=== PATIENT | female | born 1995 | race Caucasian/White ===

== ENCOUNTER 2022-05-02 07:57 | Inpatient (IN) ==
[2022-05-02] MEDS ORDERED: LIDOCAINE 1% LOCAL 20 ML VIAL INFIL PRN (08:43)
[2022-05-02] MEDS ORDERED: OXYTOCIN 30 UNITS/500 ML BAG IV PRN ×2 (08:43→08:45)
--- NOTE | 2022-05-02 08:47 | History & Physical Report ---
Date of Service May 02, 2022 Assessment & Plan (1) Encounter for induction of labor: Plan: Patient is a 27 yo at 39+3 WGA presenting to labor and delivery for induction. Blood type: O+, GBS neg, rubella immune Browne bulb placed Plan to start oxytocin and rupture membranes later if necessary Proceed with labor and vaginal delivery Admission and Anticipated Discharge Date Admission Date: May 02, 2022 History of Present Illness Chief Complaint: induction of labor Primary Care Provider: NO PCP Patient is a 27 yo female currently at 39+3 WGA with an CHANDANA 05/06/2022 as determined by US who is here for induction of labor. Her was complicated by chronic HTN and h/o leep. Denies contractions; movement present; denies fluid loss; denies bloody show External FHT and external uterine monitors used; category I tracing; normal FHT variability Had regular appointments with OB. Labs: (10/08/2021) Blood type: O+ Antibody screen: neg Rubella: immune VDRL/RPR: neg Gonorrhea: neg Chlamydia: neg HIV: neg HbSAg: neg GBS: neg Today's labs (Hgb, Hct, platelets, WBC) pending. Other screens: low risk panorama CF: declined SMA: declined Allergies Allergy/AdvReac Type Severity Reaction Status Date / Time bee venom protein (honey bee) Allergy Swelling Verified 05/02/22 08:22 of Lip/Tongue/Throat pollen extracts Allergy Wheezing Verified 05/02/22 08:22 Home Medications Medication Instructions Recorded Confirmed Type ascorbic acid (vitamin C) 500 mg 500 mg PO DAILY #90 caps 06/24/21 05/02/22 Rx capsule levocetirizine 5 mg tablet (Xyzal) 5 mg PO DAILY #90 tabs 06/24/21 05/02/22 Rx fluticasone propionate [Flonase] 1 spray intranasal DAILY 10/02/21 05/02/22 History prenat.vits,tamela,bpx-yuhp-iuwra 1 tab PO DAILY 10/02/21 05/02/22 History aspirin 81 mg tablet,delayed 81 mg PO DAILY 03/05/22 05/02/22 History release (Adult Low Dose Aspirin) Patient History Medical History (Updated 05/02/22 @ 08:54 by Maru Parish DO) Depression no meds Diarrhea Fever HGSIL (high grade squamous intraepithelial dysplasia) History of chicken pox HPV test positive Surgical History H/O cone biopsy of cervix H/O LEEP 04/2020 History of tonsillectomy [place] teeth removed Family History Grandmother Breast cancer Aunt Colorectal cancer Father Myocardial infarction Heart disease Grandfather (Paternal) Cancer Mother Hypertension Depression Denies family history of Ovarian cancer Prostate cancer Social History (Updated 05/02/22 @ 08:20 by Chey Kyle, RN) Smoking Status: Never smoker Second Hand Exposure: No; Hx Alcohol Use: No Hx Substance Use: No Preferred Language: Kyrgyz Communication Ability: Effective Visual Impairment: No Limitations Hearing Ability: Normal Truckload Checker Required: No Beliefs That Will Affect Care: None marital status: Single marital status details: storm Monahan (30) [phone] Current Living Situation: Significant Other Current Living Situation Comment: lives with fob, cat-fob changing litter current occupational status: employed 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 Denies SOB, difficulty breathing, chest pain, palpitations, and chest pressure. Denies breast pain. Denies dysuria. Denies headache or changes in vision. Physical Exam Physical Exam: General: Alert and oriented. No acute distress CV: Regular rate and rhythm. No murmurs. Respiratory: CTA bilaterally. No rhonchi, wheezes, or crackles. No increased work of breathing. Abdomen: Gravid; Soft, nontender upon palpation Pelvic: Dilation 0 cm; Effacement 0%; Station -3; mid position; moderate consistency per Dr. Florence Lower extremities: No LE edema. No deep calf pain. Chico's negative bilaterally. Results & Data ([facility]) Vital Signs (Past 12 Hours) Vital Signs Temp Pulse Resp BP 05/02/22 08:10 18 05/02/22 08:10 37.3 C 18 05/02/22 08:12 88 136/80 Supervising Physician Co-Signing Physician Notes Resident Physician Supervision Note: I was present with Dr. Parish during the history and exam. I discussed the case with the resident and agree with the findings and plan as documented in the note. Any exceptions or clarifications are listed here: 27yo at 39+wks for planned induction due to chronic hypertension. No obando, visual change or ruq pain. No swelling. No ctx, rom, vb. Last u/s with efw at 49% at 36wk. No meds for chtn. Unfavorable cx and so planned for browne ripening balloon last pm but was not able to come in. Here today for induction. Cx c/l/h mid med. efw 7-8#. abd soft, gravid nt, ext no swelling, dtrs +1, no clonus. PROCEDURE: sse cx visualized, grasped on ant lip with ring forcep, browne through os and balloon inflated with 40cc sterile water. Spec removed, browne taped to leg. pt myranda well. FHTS categ 1 Will start pitocin as well. BPs ok here. admit, routine labs. Pt and partner agreed and desired to proceed. Documented By: Audrey Florence MD, FACOG Resident Activity Tracking Resident Involvement: Resident Care Provided Care Provided: OB Delivery
[2022-05-02 09:14] LABS: Hematocrit (blood only) 31.2 % (34.1-44.9); Hemoglobin 10.1 g/dl (12.0-16.0); Mean Corpuscular Hemoglobin 26.2 pg (25.0-34.0); Mean Corpuscular Hgb Conc 32.4 g/dL (32.0-36.0); Mean Platelet Volume 9.1 fL (9.4-12.3); Platelet Count 294 K/uL (130-400); RDW Coefficient of Variation 14.1 % (11.5-14.5); RDW Standard Deviation 40.6 fL (36.4-46.3); Red Blood Count 3.85 M/uL (3.93-5.22); White Blood Count 10.97 K/ul (4.8-10.8)
--- NOTE | 2022-05-02 09:35 | Obstetrical Progress Note ---
Date of Service May 02, 2022 Assessment & Plan Admission and Anticipated Discharge Date Admission Date: May 02, 2022 Subjective This note is for billing cx dilator. see prior H&P note for procedure docume ntation. 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
[2022-05-02] MEDS: LACTATED RINGER'S 1,000 ML IV PRN ×3 (09:57→16:54)
[2022-05-02] MEDS ORDERED: ePHEDrine sulfate 50 MG/ML AMP ONE (13:32)
[2022-05-02] MEDS ORDERED: SODIUM CHLORIDE 0.9% INJ 10 ML VIAL ONE (13:32)
[2022-05-02] MEDS ORDERED: fentaNYL citrate 100 MCG/2 ML VIAL ONE (13:32)
[2022-05-02] MEDS ORDERED: BUPIVACAINE 0.25% 30 ML VIAL ONE (13:33)
[2022-05-02] MEDS ORDERED: LIDOCAINE 2%/EPINEPHRINE 1:200,000 20 ML SDV ONE ×2 (13:33→20:38)
[2022-05-02] MEDS ORDERED: fentaNYL 2MCG/ML ROPIVACAINE 1.25MG/ML 100 ML BAG EPI ONE (13:33)
--- NOTE | 2022-05-02 13:35 | Labor Progress Brief Note ---
Date of Service May 02, 2022 Subjective pt feels uncomfortable pain with ctx. wants epidural. Assessment & Plan (1) Chronic hypertension affecting : (2) Encounter for induction of labor: Plan cx with some change. will consult anesth for epidural and likely can consider removal of balloon with arom when pt comfortable. fhts categ 1. pit at 7 Admission and Anticipated Discharge Date Admission Date: May 02, 2022 Physical Exam Constitutional: WD/WN, vitals as above Genitourinary: Manual OB Exam: + cervical dilation 3 cm, + cervical effacement 50% and + station (unable to assess ) OB Exam Monitor Tracing: + external FHT monitor used, + external uterine monitor used (q2-3 with pit at 7), + category I and + normal FHT variability balloon is at os.not in vagina yet. Results & Data ([facility]) Vital Signs (Past 12 Hours) Vital Signs Temp Pulse Resp BP 05/02/22 13:10 78 150/70 H 05/02/22 12:03 77 125/71 05/02/22 11:02 85 137/77 05/02/22 09:58 86 128/78 05/02/22 08:10 18 05/02/22 08:10 99.1 F 18 05/02/22 08:12 88 136/80 Coding Level of Care Code None Diagnoses Chronic hypertension affecting O10.919 Encounter for induction of labor Z34.90
[2022-05-02] MEDS ORDERED: diphenhydrAMINE 50 MG/ML VIAL IV PRN ×2 (13:41→22:04)
[2022-05-02] MEDS ORDERED: NALOXONE HCL 1 MG in SODIUM CHLORIDE 0.9% 1000ML 1,000 ML IV PRN ×2 (13:41→22:04)
[2022-05-02] MEDS ORDERED: fentaNYL 2MCG/ML ROPIVACAINE 1.25MG/ML 100 ML BAG EPI PRN (13:41)
[2022-05-02] MEDS ORDERED: NALBUPHINE HCL INJ 10 MG/ML AMP IV PRN ×2 (13:41→22:04)
[2022-05-02] MEDS ORDERED: ePHEDrine sulfate 50 MG/ML AMP IV PRN ×2 (13:41→22:04)
[2022-05-02] MEDS ORDERED: NALOXONE HCL 0.4 MG/1 ML VIAL/CARP IV PRN ×2 (13:41→22:04)
--- NOTE | 2022-05-02 13:41 | Anesthesiology Consultation ---
Date of Service May 02, 2022 Assessment & Plan (1) Encounter for pre-operative examination: Chart Review Chart Review: Patient NOT seen in Pre Admission Testing and Acceptable Risk for Labor Epidural Consults Requested none History Height/Weight Height: 5 ft 4 in Weight: 90.265 kg Allergies Allergy/AdvReac Type Severity Reaction Status Date / Time bee venom protein (honey bee) Allergy Swelling Verified 05/02/22 08:22 of Lip/Tongue/Throat pollen extracts Allergy Wheezing Verified 05/02/22 08:22 Medications Home Medications Medication Instructions Recorded Confirmed Last Taken ascorbic acid (vitamin C) 500 mg 500 mg PO DAILY #90 caps 06/24/21 05/02/22 05/02/22 06:00 capsule levocetirizine 5 mg tablet (Xyzal) 5 mg PO DAILY #90 tabs 06/24/21 05/02/22 05/01/22 21:00 fluticasone propionate [Flonase] 1 spray intranasal DAILY 10/02/21 05/02/22 05/01/22 06:00 prenat.vits,tamela,nsz-swum-hlkov 1 tab PO DAILY 10/02/21 05/02/22 05/02/22 06:00 aspirin 81 mg tablet,delayed 81 mg PO DAILY 03/05/22 05/02/22 05/01/22 06:00 release (Adult Low Dose Aspirin) Active Medications Generic Name Dose Route Start Last Admin Trade Name Freq PRN Reason Stop Dose Admin Lactated Ringer's 1,000 mls @ 125 mls/hr 05/02/22 08:43 05/02/22 13:30 Lr IV 05/04/22 08:42 999 mls/hr .Q8H PRN Infusion L&D Protocol Protocol Oxytocin 30 units in 500 mls @ 7 mls/hr 05/02/22 08:45 05/02/22 12:00 Pitocin IV 05/04/22 08:44 0.42 units/hr .Q24H PRN 7 mls/hr Labor Induction/Augmentation Titration Protocol 0.42 UNITS/HR Past Medical History Medical History Depression no meds Diarrhea Fever HGSIL (high grade squamous intraepithelial dysplasia) History of chicken pox HPV test positive Past Family History Family History Grandmother Breast cancer Aunt Colorectal cancer Father Myocardial infarction Heart disease Grandfather (Paternal) Cancer Mother Hypertension Depression Denies family history of Ovarian cancer Prostate cancer Past Surgical History Surgical History H/O cone biopsy of cervix H/O LEEP 04/2020 History of tonsillectomy [place] teeth removed Social History Smoking Status: Never smoker Hx Alcohol Use: No Hx Substance Use: No substance use type: does not use Physical Exam Vital Signs Last Vital Signs Temp 99.1 F 05/02/22 08:10 Pulse 78 05/02/22 13:10 Resp 18 05/02/22 08:10 BP 150/70 H 05/02/22 13:10 Testing Laboratory Results 05/02/22 09:02
--- NOTE | 2022-05-02 15:54 | Labor Progress Brief Note ---
Date of Service May 02, 2022 After received epidural the cervical Jordan was examined and found to be in the vagina the cervix is 3 cm and 30% however the station is so high that I cannot palpate a full presenting part ultrasound confirms that it is in vertex position at this time however far too high to rupture so we will continue Pitocin Assessment & Plan Admission and Anticipated Discharge Date Admission Date: May 02, 2022 Results & Data ([facility]) Vital Signs (Past 12 Hours) Vital Signs Temp Pulse Resp BP Pulse Ox 05/02/22 15:49 72 100 05/02/22 15:46 70 119/58 L 05/02/22 15:00 98.8 F 05/02/22 15:44 71 100 05/02/22 15:39 79 100 05/02/22 15:34 64 99 05/02/22 15:29 72 100 05/02/22 15:30 71 118/67 05/02/22 15:24 70 100 05/02/22 15:19 63 100 05/02/22 15:16 67 118/56 L 05/02/22 15:14 64 100 05/02/22 15:09 62 100 05/02/22 15:04 74 100 05/02/22 15:02 68 117/57 L 05/02/22 15:01 69 115/56 L 05/02/22 14:59 74 100 05/02/22 14:54 72 100 05/02/22 14:52 70 123/58 L 05/02/22 14:49 72 99 05/02/22 14:48 67 114/56 L 05/02/22 14:44 66 100 05/02/22 14:42 73 125/58 L 05/02/22 14:39 75 100 05/02/22 14:37 67 110/58 L 05/02/22 14:34 83 100 05/02/22 14:33 71 132/61 05/02/22 14:29 73 100 05/02/22 14:24 72 100 05/02/22 14:25 74 123/73 05/02/22 14:23 75 124/61 05/02/22 14:21 78 117/61 05/02/22 14:19 100 05/02/22 14:19 76 05/02/22 14:19 75 122/58 L 05/02/22 14:17 77 140/67 01/06/23 14:14 82 100 05/02/22 14:15 76 124/62 05/02/22 14:13 74 126/57 L 05/02/22 14:11 78 125/74 05/02/22 14:09 77 100 05/02/22 14:08 72 116/57 L 05/02/22 14:04 81 100 05/02/22 13:59 88 100 05/02/22 13:54 90 100 05/02/22 13:49 81 100 05/02/22 13:44 85 100 05/02/22 13:39 77 100 05/02/22 13:10 78 150/70 H 05/02/22 12:03 77 125/71 05/02/22 11:02 85 137/77 05/02/22 09:58 86 128/78 05/02/22 08:10 18 05/02/22 08:10 99.1 F 18 05/02/22 08:12 88 136/80 Coding Level of Care Code None
--- NOTE | 2022-05-02 19:53 | Labor Progress Brief Note ---
Date of Service May 02, 2022 Cervix still 3 to 4 cm presenting part almost unpalpable out of the pelvis her contractions are approximately every 1.5 minutes apart with a total Nyack units of 200 per 10 minutes the contraction strength could be stronger however I am worried about increasing Pitocin and getting hyper contraction state with too short of an interval at this stage we have made no progress of the her membranes are ruptured spontaneously I have given the patient and her partner 2 choices 1 is we continue labor we certainly are no ris ks at this stage continue heart rate is category 1 I am also worried that this baby is considered considerably out of the pelvis at this stage and is shown no descent at all I am somewhat worried the baby is not going to fit through and I voiced my concern with this I also reassured him we can continue to trying to induce labor at this stage they would prefer to proceed to section I think this is reasonable section. The patient was counseled to the nature of the procedure including alternatives such as labor. Risks were discussed including bleeding infection injury to bowel bladder ureter vessels and even baby. Deep Vein thrombosis, pulmonary embolus discussed. Breakdown of incision reviewed. Deep vein thrombosis pulmonary embolus hernia and failure of the incision to heal were discussed Patient verbalized understanding of this and was given ample time to ask questions Assessment & Plan Admission and Anticipated Discharge Date Admission Date: May 02, 2022 Results & Data ([facility]) Vital Signs (Past 12 Hours) Vital Signs Temp Pulse Resp BP Pulse Ox 05/02/22 18:30 18 05/02/22 17:30 20 05/02/22 17:00 20 05/02/22 16:30 18 05/02/22 16:00 16 05/02/22 15:45 18 05/02/22 15:30 20 05/02/22 15:15 20 05/02/22 15:00 16 05/02/22 14:45 18 05/02/22 14:30 16 05/02/22 14:15 20 05/02/22 19:49 95 H 99 05/02/22 19:46 96 H 150/86 H 05/02/22 19:44 89 100 05/02/22 19:39 87 99 05/02/22 19:34 91 H 100 05/02/22 19:31 90 132/74 05/02/22 19:29 105 H 100 05/02/22 19:24 99 H 100 05/02/22 19:19 91 H 100 05/02/22 19:16 90 139/73 05/02/22 19:14 91 H 99 05/02/22 19:09 98 H 100 05/02/22 19:04 92 H 100 05/02/22 19:01 98.2 F 102 H 18 124/75 05/02/22 18:59 89 100 05/02/22 18:54 84 100 05/02/22 18:49 92 H 100 05/02/22 18:44 91 H 100 05/02/22 18:45 97 H 121/65 05/02/22 18:39 94 H 100 05/02/22 18:34 87 99 05/02/22 18:30 81 123/65 05/02/22 18:29 90 100 05/02/22 18:24 95 H 100 05/02/22 18:19 87 100 05/02/22 18:14 92 H 100 05/02/22 18:15 93 H 133/73 05/02/22 18:09 91 H 100 05/02/22 18:04 90 100 05/02/22 17:59 90 100 05/02/22 18:00 85 20 129/69 05/02/22 17:54 93 H 100 05/02/22 17:49 91 H 100 05/02/22 17:45 89 130/85 05/02/22 17:44 87 100 05/02/22 17:39 77 99 05/02/22 17:34 101 H 100 05/02/22 17:31 85 124/83 05/02/22 17:29 89 100 05/02/22 17:24 90 100 05/02/22 17:19 86 100 05/02/22 17:16 88 133/81 05/02/22 17:14 86 100 05/02/22 17:09 82 100 05/02/22 17:04 87 100 05/02/22 16:59 89 100 05/02/22 17:00 98.6 F 89 146/72 H 05/02/22 16:54 84 100 05/02/22 16:49 84 100 05/02/22 16:45 83 136/86 05/02/22 16:44 85 100 05/02/22 16:39 81 99 05/02/22 16:34 78 100 05/02/22 16:31 79 129/81 05/02/22 16:29 77 100 05/02/22 16:24 81 100 05/02/22 16:19 84 100 05/02/22 16:14 84 100 05/02/22 16:09 79 100 05/02/22 16:04 83 100 05/02/22 16:01 68 126/57 L 05/02/22 15:59 73 100 05/02/22 15:54 69 100 05/02/22 15:49 72 100 05/02/22 15:46 70 119/58 L 05/02/22 15:00 98.8 F 05/02/22 15:44 71 100 05/02/22 15:39 79 100 05/02/22 15:34 64 99 05/02/22 15:29 72 100 05/02/22 15:30 71 118/67 05/02/22 15:24 70 100 05/02/22 15:19 63 100 05/02/22 15:16 67 118/56 L 05/02/22 15:14 64 100 05/02/22 15:09 62 100 05/02/22 15:04 74 100 05/02/22 15:02 68 117/57 L 05/02/22 15:01 69 115/56 L 05/02/22 14:59 74 100 05/02/22 14:54 72 100 05/02/22 14:52 70 123/58 L 05/02/22 14:49 72 99 05/02/22 14:48 67 114/56 L 05/02/22 14:44 66 100 05/02/22 14:42 73 125/58 L 05/02/22 14:39 75 100 05/02/22 14:37 67 110/58 L 05/02/22 14:34 83 100 05/02/22 14:33 71 132/61 05/02/22 14:29 73 100 05/02/22 14:24 72 100 05/02/22 14:25 74 123/73 05/02/22 14:23 75 124/61 05/02/22 14:21 78 117/61 05/02/22 14:19 100 05/02/22 14:19 76 05/02/22 14:19 75 122/58 L 05/02/22 14:17 77 140/67 05/02/22 14:14 82 100 05/02/22 14:15 76 124/62 05/02/22 14:13 74 126/57 L 05/02/22 14:11 78 125/74 05/02/22 14:09 77 100 05/02/22 14:08 72 116/57 L 05/02/22 14:04 81 100 05/02/22 13:59 88 100 05/02/22 13:54 90 100 05/02/22 13:49 81 100 05/02/22 13:44 85 100 05/02/22 13:39 77 100 05/02/22 13:10 78 150/70 H 05/02/22 12:03 77 125/71 05/02/22 11:02 85 137/77 05/02/22 09:58 86 128/78 05/02/22 08:10 18 05/02/22 08:10 99.1 F 18 05/02/22 08:12 88 136/80 Coding Level of Care Code None
[2022-05-02] MEDS ORDERED: LACTATED RINGER'S 1,000 ML IV SCH ×2 (20:00→22:00)
[2022-05-02] MEDS ORDERED: ceFAZolin 2000MG 2,000 MG/15 ML SYR IV SCH (20:30)
[2022-05-02] MEDS ORDERED: CITRIC ACID/SODIUM CITRATE 15 ML UDC PO SCH (20:30)
[2022-05-02] MEDS ORDERED: ONDANSETRON INJ 2 MG/ML 2 ML VIAL ONE (20:38)
[2022-05-02] MEDS ORDERED: MoRPHine SULFATE PF 1 MG/ML 10 ML AMP/VIAL ONE (20:38)
[2022-05-02] MEDS ORDERED: KETOROLAC 30 MG/ML VIAL ONE (20:38)
[2022-05-02] MEDS ORDERED: OXYTOCIN 10 UNITS/ML 10ML VIAL ONE (20:38)
[2022-05-02] MEDS ORDERED: CARBOPROST TROMETHAMINE 250 MCG/ML AMPUL ONE (21:28)
[2022-05-02] MEDS ORDERED: MAGNESIUM HYDROXIDE SUSP 30 ML UDC PO PRN (21:48)
[2022-05-02] MEDS ORDERED: SENNA 8.6 MG TAB PO PRN (21:48)
[2022-05-02] MEDS ORDERED: HYDROCORTISONE ACETATE 25 MG SUPP PR PRN (21:48)
[2022-05-02] MEDS ORDERED: BENZOCAINE 20% AER SPR 82.5 GM CAN EXT PRN (21:48)
--- NOTE | 2022-05-02 21:56 | Operative Report ---
PG Post Operative Report Pre & Post Diagnosis Operation Date: 05/02/22 21:15 Pre-Op Diagnosis: 1. Failure to progress 2. Failure to descend Post-Op Diagnosis: 1. Failure to progress 2. Failure to descend 3. Delivery of live female child at 2123 I identified the patient and participated in the time-out.: Yes Procedure Operation Date: 05/02/22 21:15 Actual Procedures p Section in LD - Chau. Gagan Mcconnell MD, FACOG Surgeon Corine Mcconnell MD, FACOG Meter Changes Records Clerk Shila Zhu RN Estimated Blood Loss 500 Findings Consistent with Post-Op Diagnosis Specimens Cord blood Description of Procedure Regional anesthetic had been given by anesthesia patient was prepped and draped with a leftward tilt preoperative antibiotics had been given in appropriate timing by anesthesiology. Once the prep was allowed to fully dry timeout was performed. Pickups with teeth were used to test the incision area was found to be adequate for incision as the patient did not feel sharp pain. Scalpel was used to make a Pfannenstiel incision on the lower abdomen. We then cut through the subcutaneous fat down to the level of the anterior rectus sheath fascia this was cut in the midline and then extended laterally with the curved Calhoun scissors. At this stage we then placed 2 Fawad clamps on the anterior aspect of the fascia. Using the curved Calhoun's we are able to dissect the fascia superiorly away from the rectus muscles. Care was taken to maintain hemostasis. Fawad clamps were then placed to the inferior aspect of the anterior sheath of the fascia. Fascia was then dissected away from the rectus muscles inferiorly towards the pubic bone. A Fawad was then placed in the midline both inferiorly and superiorly. This was to allow exposure by retraction rectus muscles were in the midline with were then able to cut through the peritoneum and then enter the peritoneal cavity. Opening was enlarged to allow exposure of the peritoneal cavity both superiorly and inferiorly. Once adequate space was obtained a bladder retractor was placed to expose the lower segment Metzenbaums were used to dissect the bladder flap inferiorly away from the uterus. This was done sharply bladder retractor was then repositioned to expose the lower segment of the uterus Fresh scalpel was used to make a low transverse incision on the uterus. Uterus was then entered bluntly with the operators finger, membranes ruptured and the opening was enlarged using the operators fingers bluntly pulling superiorly and inferiorly to allow exposure. Baby's head was floating well out of the pelvis I decided to use the vacuum as I did not think it would deliver easily with just pressure and flexion of the head a mighty VAC was attached and was easily delivered the baby's head then delivered mouth and then nares were suctioned and then using gentle traction the baby was fully delivered. Live vigorous infant. Fluid was clear cord clamped and cut cord gases obtained cord blood obtained baby handed to pediatrics. Placenta removed was removed with traction we ensure the entire placenta was removed with a moist lap sponge into the uterus Uterus was then exteriorized. IV Pitocin had been started by anesthesia tone improved there were no extensions the uterus was then closed using 0 Monocryl in a 2 layer closure the first layer closed in a running locked fashion from left to right and then a second closure from left to right in a running nonlocked fashion. At this stage hemostasis was excellent. Uterus was placed back in the peritoneal cavity with suction irrigation out and inspection of the uterus at this stage revealed excellent hemostasis Retractors were removed urine color was clear at this stage of the case we inspected the rectus muscles they were hemostatic fascia was closed with 0 Vicryl subcutaneous fat was irrigated and closed with 3-0 Vicryl skin closed with 4-0 subcuticular Monocryl Adnexa and uterus appeared normal I attest to the content of the Intraoperative Record and any orders documented therein. Any exceptions are noted below. OB Procedure Charges 59528
[2022-05-02] MEDS ORDERED: PROMETHAZINE HCL 12.5 MG in SODIUM CHLORIDE 0.9% 50 ML IV PRN (22:04)
[2022-05-02] MEDS ORDERED: ACETAMINOPHEN 1,000 MG/100 ML VIAL IV PRN (22:04)
[2022-05-02] MEDS ORDERED: KETOROLAC 30 MG/ML VIAL IV PRN (22:04)
[2022-05-02] MEDS ORDERED: MoRPHine SULFATE PF 1 MG/ML 10 ML AMP/VIAL EPI ONE (22:04)
[2022-05-02] MEDS ORDERED: NALOXONE HCL 0.08 MG in SYRINGE 1.8 ML IV PRN (22:04)
[2022-05-02] MEDS ORDERED: LACTATED RINGER'S 500 ML IV PRN (22:04)
[2022-05-02] MEDS ORDERED: HYDROmorphone INJ 0.5 MG/0.5 ML SYR IV PRN (22:04)
[2022-05-02] MEDS ORDERED: ONDANSETRON INJ 2 MG/ML 2 ML VIAL IV PRN (22:04)
--- NOTE | 2022-05-02 22:06 | Anesthesia Procedure Note ---
Date of Service May 02, 2022 Anesthesia Post Epidural Note Vital Signs Vital Signs: Temp Pulse Resp BP Pulse Ox 98.2 F 92 H 18 146/74 H 96 05/02/22 19:01 05/02/22 22:00 05/02/22 19:01 05/02/22 21:56 05/02/22 22:00 Notes Mental Status: alert / awake / arousable and participated in evaluation Nausea / Vomiting: adequately controlled Pain: adequately controlled Airway Patency, RR, SpO2: stable & adequate BP & HR: stable & adequate Hydration State: stable & adequate Neuraxial Anesthesia: was administered and sensory block is resolving Anesthetic Complications: no major complications apparent and Pt Satisfied with anesthetic care Epidural: Removed without complications and With tip intact
--- NOTE | 2022-05-02 22:07 | Anesthesiology Progress Note ---
Date of Service May 02, 2022 Anesthesia Post Procedure Vital Signs Vital Signs: Temp Pulse Resp BP Pulse Ox 05/02/22 18:30 18 05/02/22 17:30 20 05/02/22 17:00 20 05/02/22 16:30 18 05/02/22 16:00 16 05/02/22 15:45 18 05/02/22 15:30 20 05/02/22 15:15 20 05/02/22 15:00 16 05/02/22 14:45 18 05/02/22 14:30 16 05/02/22 14:15 20 05/02/22 22:05 98 H 98 05/02/22 22:00 92 H 96 05/02/22 21:59 95 H 93 05/02/22 21:56 93 H 146/74 H 05/02/22 21:00 82 135/74 05/02/22 20:59 86 100 05/02/22 20:54 93 H 99 05/02/22 20:49 95 H 98 05/02/22 20:46 88 135/63 05/02/22 20:44 89 99 05/02/22 20:39 92 H 99 05/02/22 20:34 96 H 99 05/02/22 20:30 90 122/64 05/02/22 20:29 93 H 99 05/02/22 20:24 98 H 99 05/02/22 20:19 89 99 05/02/22 20:14 89 98 05/02/22 20:15 90 127/76 05/02/22 20:09 91 H 98 05/02/22 20:04 88 99 05/02/22 20:01 85 136/74 05/02/22 19:59 96 H 99 05/02/22 19:54 95 H 99 05/02/22 19:49 95 H 99 05/02/22 19:46 96 H 150/86 H 05/02/22 19:44 89 100 05/02/22 19:39 87 99 05/02/22 19:34 91 H 100 05/02/22 19:31 90 132/74 05/02/22 19:29 105 H 100 05/02/22 19:24 99 H 100 05/02/22 19:19 91 H 100 05/02/22 19:16 90 139/73 05/02/22 19:14 91 H 99 05/02/22 19:09 98 H 100 05/02/22 19:04 92 H 100 05/02/22 19:01 98.2 F 102 H 18 124/75 05/02/22 18:59 89 100 05/02/22 18:54 84 100 05/02/22 18:49 92 H 100 05/02/22 18:44 91 H 100 05/02/22 18:45 97 H 121/65 05/02/22 18:39 94 H 100 05/02/22 18:34 87 99 05/02/22 18:30 81 123/65 05/02/22 18:29 90 100 05/02/22 18:24 95 H 100 05/02/22 18:19 87 100 05/02/22 18:14 92 H 100 05/02/22 18:15 93 H 133/73 05/02/22 18:09 91 H 100 05/02/22 18:04 90 100 05/02/22 17:59 90 100 05/02/22 18:00 85 20 129/69 05/02/22 17:54 93 H 100 05/02/22 17:49 91 H 100 05/02/22 17:45 89 130/85 05/02/22 17:44 87 100 05/02/22 17:39 77 99 05/02/22 17:34 101 H 100 05/02/22 17:31 85 124/83 05/02/22 17:29 89 100 05/02/22 17:24 90 100 05/02/22 17:19 86 100 05/02/22 17:16 88 133/81 05/02/22 17:14 86 100 05/02/22 17:09 82 100 05/02/22 17:04 87 100 05/02/22 16:59 89 100 05/02/22 17:00 98.6 F 89 146/72 H 05/02/22 16:54 84 100 05/02/22 16:49 84 100 05/02/22 16:45 83 136/86 05/02/22 16:44 85 100 05/02/22 16:39 81 99 05/02/22 16:34 78 100 05/02/22 16:31 79 129/81 05/02/22 16:29 77 100 05/02/22 16:24 81 100 05/02/22 16:19 84 100 05/02/22 16:14 84 100 05/02/22 16:09 79 100 05/02/22 16:04 83 100 05/02/22 16:01 68 126/57 L 05/02/22 15:59 73 100 05/02/22 15:54 69 100 05/02/22 15:49 72 100 05/02/22 15:46 70 119/58 L 05/02/22 15:00 98.8 F 05/02/22 15:44 71 100 05/02/22 15:39 79 100 05/02/22 15:34 64 99 05/02/22 15:29 72 100 05/02/22 15:30 71 118/67 05/02/22 15:24 70 100 05/02/22 15:19 63 100 05/02/22 15:16 67 118/56 L 05/02/22 15:14 64 100 05/02/22 15:09 62 100 05/02/22 15:04 74 100 05/02/22 15:02 68 117/57 L 05/02/22 15:01 69 115/56 L 05/02/22 14:59 74 100 05/02/22 14:54 72 100 05/02/22 14:52 70 123/58 L 05/02/22 14:49 72 99 05/02/22 14:48 67 114/56 L 05/02/22 14:44 66 100 05/02/22 14:42 73 125/58 L 05/02/22 14:39 75 100 05/02/22 14:37 67 110/58 L 05/02/22 14:34 83 100 05/02/22 14:33 71 132/61 05/02/22 14:29 73 100 05/02/22 14:24 72 100 05/02/22 14:25 74 123/73 05/02/22 14:23 75 124/61 05/02/22 14:21 78 117/61 05/02/22 14:19 100 05/02/22 14:19 76 05/02/22 14:19 75 122/58 L 05/02/22 14:17 77 140/67 05/02/22 14:14 82 100 05/02/22 14:15 76 124/62 05/02/22 14:13 74 126/57 L 05/02/22 14:11 78 125/74 05/02/22 14:09 77 100 05/02/22 14:08 72 116/57 L 05/02/22 14:04 81 100 05/02/22 13:59 88 100 05/02/22 13:54 90 100 05/02/22 13:49 81 100 05/02/22 13:44 85 100 05/02/22 13:39 77 100 05/02/22 13:10 78 150/70 H 05/02/22 12:03 77 125/71 05/02/22 11:02 85 137/77 05/02/22 09:58 86 128/78 05/02/22 08:10 18 05/02/22 08:10 99.1 F 18 05/02/22 08:12 88 136/80 Transfer of Care Handoff Completed per policy Notes Mental Status: alert / awake / arousable and participated in evaluation Patient Amnestic to Procedure: No Nausea / Vomiting: adequately controlled Pain: adequately controlled Airway Patency, RR, SpO2: stable & adequate BP & HR: stable & adequate Hydration State: stable & adequate Neuraxial Anesthesia: was administered and sensory block is resolving Anesthetic Complications: no major complications apparent and Pt Satisfied with anesthetic care
[2022-05-02] MEDS ORDERED: NO NARCOTICS OR SEDATIVES SCH (22:15)
[2022-05-02] MEDS ORDERED: DC INTRASPINAL MORPHINE SCH (22:15)
[2022-05-02] MEDS ORDERED: SODIUM CHLORIDE 0.9% 1000ML 1,000 ML IV SCH (22:15)
[2022-05-03] MEDS: OXYTOCIN 20 UNITS in LACTATED RINGER'S 1,000 ML IV SCH ×2 (00:08→08:51)
[2022-05-03] MEDS: DIPHTHERIA/TETANUS/PERTUSSIS 0.5 ML SYR/VIAL IM ONE ×2 (07:17→08:08)
--- NOTE | 2022-05-03 08:01 | Obstetrical Progress Note ---
Date of Service May 03, 2022 Assessment & Plan (1) state: from section 12 hours ago the patient is doing very well she still has her catheter and has not ambulated pain is well controlled there is no extremity pain she will continue current care today Subjective Diet Tolerance:: regular diet Lochia:: Small Feeding Type:: breast feeding Current Pain Level(1-10): 2 Results & Data ([facility]) Vital Signs (Past 12 Hours) Vital Signs Temp Pulse Pulse Resp BP BP Pulse Ox 05/03/22 07:30 98.6 F 80 20 129/76 99 05/03/22 07:30 20 99 05/03/22 06:20 18 99 05/03/22 05:20 16 97 05/03/22 04:20 18 98 05/03/22 03:20 18 98 05/03/22 03:20 99.1 F 98 H 18 131/77 98 05/03/22 02:20 18 98 05/03/22 01:20 16 98 05/03/22 00:20 18 100 05/03/22 00:20 98.6 F 85 16 137/75 100 05/03/22 00:00 87 98 05/02/22 23:56 99.1 F 88 18 136/68 05/02/22 23:55 84 98 05/02/22 23:50 84 99 05/02/22 23:46 77 126/61 05/02/22 23:45 88 97 05/02/22 23:40 85 98 05/02/22 23:36 86 134/66 05/02/22 23:35 82 98 05/02/22 23:30 85 98 05/02/22 23:26 84 18 131/61 05/02/22 23:25 84 98 05/02/22 23:20 87 99 05/02/22 23:16 83 123/57 L 05/02/22 23:15 92 H 98 05/02/22 23:10 89 98 05/02/22 23:06 94 H 125/59 L 05/02/22 23:05 93 H 98 05/02/22 23:00 91 H 98 05/02/22 22:56 91 H 18 143/63 H 05/02/22 22:55 91 H 98 05/02/22 22:50 96 H 98 05/02/22 22:46 97 H 18 138/64 01/06/23 22:45 102 H 97 05/02/22 22:40 98 H 99 05/02/22 22:36 103 H 18 151/70 H 05/02/22 22:35 102 H 96 05/02/22 22:30 102 H 96 05/02/22 22:26 94 H 18 139/63 05/02/22 22:25 103 H 99 05/02/22 22:20 95 H 97 05/02/22 22:17 93 H 18 146/67 H 05/02/22 22:16 95 H 161/76 H 05/02/22 22:15 94 H 98 05/02/22 22:10 98 H 99 05/02/22 22:06 97 H 18 134/71 05/02/22 22:05 98 H 98 05/02/22 22:00 92 H 96 05/02/22 21:59 95 H 93 05/02/22 21:56 99.3 F 93 H 18 146/74 H 05/02/22 21:00 82 135/74 05/02/22 20:59 86 100 05/02/22 20:54 93 H 99 05/02/22 20:49 95 H 98 05/02/22 20:46 88 135/63 05/02/22 20:44 89 99 05/02/22 20:39 92 H 99 05/02/22 20:34 96 H 99 05/02/22 20:30 90 122/64 05/02/22 20:29 93 H 99 05/02/22 20:24 98 H 99 05/02/22 20:19 89 99 05/02/22 20:14 89 98 05/02/22 20:15 90 127/76 05/02/22 20:09 91 H 98 05/02/22 20:04 88 99 05/02/22 20:01 85 136/74 O2 Del Method 05/03/22 07:30 Room Air 05/03/22 07:30 05/03/22 06:20 05/03/22 05:20 05/03/22 04:20 05/03/22 03:20 05/03/22 03:20 Room Air 05/03/22 02:20 05/03/22 01:20 05/03/22 00:20 05/03/22 00:20 Room Air 05/03/22 00:00 05/02/22 23:56 05/02/22 23:55 05/02/22 23:50 05/02/22 23:46 05/02/22 23:45 05/02/22 23:40 05/02/22 23:36 05/02/22 23:35 05/02/22 23:30 05/02/22 23:26 05/02/22 23:25 05/02/22 23:20 05/02/22 23:16 05/02/22 23:15 05/02/22 23:10 05/02/22 23:06 05/02/22 23:05 05/02/22 23:00 05/02/22 22:56 05/02/22 22:55 05/02/22 22:50 05/02/22 22:46 05/02/22 22:45 05/02/22 22:40 05/02/22 22:36 05/02/22 22:35 05/02/22 22:30 05/02/22 22:26 05/02/22 22:25 05/02/22 22:20 05/02/22 22:17 05/02/22 22:16 05/02/22 22:15 05/02/22 22:10 05/02/22 22:06 05/02/22 22:05 05/02/22 22:00 05/02/22 21:59 05/02/22 21:56 05/02/22 21:00 05/02/22 20:59 05/02/22 20:54 05/02/22 20:49 05/02/22 20:46 05/02/22 20:44 05/02/22 20:39 05/02/22 20:34 05/02/22 20:30 05/02/22 20:29 05/02/22 20:24 05/02/22 20:19 05/02/22 20:14 05/02/22 20:15 05/02/22 20:09 05/02/22 20:04 05/02/22 20:01
[2022-05-03] MEDS: SIMETHICONE 80 MG CHEW PO SCH ×4 (08:05→22:09)
[2022-05-03] MEDS: DOCUSATE SODIUM 100 MG CAP PO SCH ×2 (08:05→20:43)
[2022-05-03] MEDS: PRENATAL VITAMIN 1 TAB PO SCH (08:05)
[2022-05-03] MEDS: FERROUS SULFATE 325 MG TAB PO SCH (08:05)
[2022-05-03] MEDS: FLUTICASONE PROPIONATE NA SPR 16 GM BTL SCH (08:07)
[2022-05-03] MEDS ORDERED: NON-FORMULARY MEDICATION (Prenat.Vits,Cal,Min-Iron-Folic tablet) PO SCH (09:00)
[2022-05-03 09:19] LABS: Basophils # (auto) 0.04 K/uL (0-0.2); Basophils % (auto) 0.3 %; Eosinophils # (auto) 0.06 K/uL (0-0.50); Eosinophils % (auto) 0.4 %; Hematocrit (blood only) 25.2 % (34.1-44.9); Hemoglobin 8.5 g/dl (12.0-16.0); Immature Granulocytes % (auto) 0.7 %; Lymphocytes # (auto) 1.21 K/uL (1.2-3.4); Lymphocytes % (auto) 8.4 %; Mean Corpuscular Hemoglobin 26.7 pg (25.0-34.0); Mean Corpuscular Hgb Conc 33.7 g/dL (32.0-36.0); Mean Corpuscular Volume 79.2 fL (80.0-100.0); Mean Platelet Volume 8.8 fL (9.4-12.3); Monocytes # (auto) 1.11 K/uL (0.24-0.82); Monocytes % (auto) 7.7 %; Neutrophils # (auto) 11.86 K/uL (1.4-6.5); Neutrophils % (auto) 82.5 %; Platelet Count 232 K/uL (130-400); RDW Standard Deviation 40.1 fL (36.4-46.3); Red Blood Count 3.18 M/uL (3.93-5.22); White Blood Count 14.38 K/ul (4.8-10.8)
[2022-05-03] MEDS: KETOROLAC 30 MG/ML VIAL IV PRN ×2 (09:37→15:55)
[2022-05-03] MEDS ORDERED: diphenhydrAMINE 50 MG/ML VIAL IV PRN (16:06)
[2022-05-03] MEDS ORDERED: PROMETHAZINE HCL 25 MG in SODIUM CHLORIDE 0.9% 50 ML IV PRN (16:06)
[2022-05-03] MEDS ORDERED: ONDANSETRON INJ 2 MG/ML 2 ML VIAL IV PRN (16:06)
[2022-05-03] MEDS ORDERED: diphenhydrAMINE Capsule 25 MG CAP PO PRN (16:06)
[2022-05-03] MEDS ORDERED: bisacodyL 5 MG TABEC PO SCH (20:00)
[2022-05-03] MEDS: IBUPROFEN 600 MG TAB PO PRN (20:39)
[2022-05-03] MEDS: oxyCODONE/ACETAMINOPHEN 5mg/325mg TAB PO PRN (22:02)
[2022-05-04] MEDS: oxyCODONE/ACETAMINOPHEN 5mg/325mg TAB PO PRN ×3 (02:26→13:29)
[2022-05-04] MEDS: IBUPROFEN 600 MG TAB PO PRN ×3 (02:27→13:29)
--- NOTE | 2022-05-04 07:02 | Obstetrical Progress Note ---
Date of Service May 04, 2022 Assessment & Plan (1) state: Plan stable, doing well. eating, voiding, pain control adequate. wants to go home. breast, rhpos, ri. discussed poss dc later today. instructions reviewed. f/u 6 wk pp. checked on papdmp, no issues. reviewed use of narcotic meds. hgb pending this am. explained to pt I would feel more comfortable if doing well later in the day as only 36hr from c/s thus far but admittedly doing well. Day #:: 2 Subjective Ambulation: ambulating normally Voiding: no voiding problems Passing Gas:: Yes Diet Tolerance:: regular diet Lochia:: Small Feeding Type:: breast feeding denies pain issues. really wants to go home Constitutional: + as per Subjective / HPI Physical Exam Constitutional WD/WN, vitals as above Respiratory normal respiratory effort, lungs clear to auscultation Cardiovascular Rate/Rhythm: regular rate and regular rhythm Gastrointestinal (Abdomen) Inspection/Auscultation: abdomen normal to inspection and + abdominal surgical incision (c/d/i with steris) Percussion/Palpation: abdomen soft Fundus firm 2cm down Musculoskeletal nt calves no edema Neurologic grossly normal Psychiatric A+Ox3, euthymic affect Results & Data ([facility]) Vital Signs (Past 12 Hours) Vital Signs Temp Pulse Resp BP 05/03/22 23:30 97.3 F L 76 18 117/68 05/03/22 19:30 97.9 F 86 18 146/87 H
[2022-05-04 07:11] LABS: Hematocrit (blood only) 26.4 % (34.1-44.9); Hemoglobin 8.5 g/dl (12.0-16.0)
[2022-05-04] MEDS: SIMETHICONE 80 MG CHEW PO SCH ×2 (07:47→13:33)
[2022-05-04] MEDS: DOCUSATE SODIUM 100 MG CAP PO SCH (07:47)
[2022-05-04] MEDS: PRENATAL VITAMIN 1 TAB PO SCH (07:47)
[2022-05-04] MEDS: FERROUS SULFATE 325 MG TAB PO SCH (07:47)
[2022-05-04] MEDS: FLUTICASONE PROPIONATE NA SPR 16 GM BTL SCH (07:49)
[2022-05-04] MEDS ORDERED: bisacodyL 10 MG SUPP PR PRN (21:48)
--- NOTE | 2022-05-06 14:43 | Discharge Summary ---
Date of Service May 06, 2022 Admission HPI Per Admitting Provider Patient is a 27 yo female currently at 39+3 WGA with an CHANDANA 05/06/2022 as determined by US who is here for induction of labor. Her was complicated by chronic HTN and h/o leep. Denies contractions; movement present; denies fluid loss; denies bloody show External FHT and external uterine monitors used; category I tracing; normal FHT variability Had regular appointments with OB. Labs: (10/08/2021) Blood type: O+ Antibody screen: neg Rubella: immune VDRL/RPR: neg Gonorrhea: neg Chlamydia: neg HIV: neg HbSAg: neg GBS: neg Today's labs (Hgb, Hct, platelets, WBC) pending. Other screens: low risk panorama CF: declined SMA: declined Discharge Data Consultations 05/02/22 08:43 Consult Anesthesiology Stat Procedures Performed Operation Date: 05/02/22 21:15 Actual Procedures p Section in - J. Gagan Mcconnell MD, [facility] [place] Course (1) state: Plan stable, doing well. eating, voiding, pain control adequate. wants to go home. breast, rhpos, ri. discussed poss dc later today. instructions reviewed. f/u 6 wk pp. checked on papdmp, no issues. reviewed use of narcotic meds. hgb pending this am. explained to pt I would feel more comfortable if doing well later in the day as only 36hr from c/s thus far but admittedly doing well. Coding Level of Care Code None Diagnoses state Z39.2
== END 2022-05-04 15:20 | disposition home or self-care (01) | DRG 788 ==
LOC: 4S1 07:57 → 4E2 05-03 01:39